=== PATIENT | female | born 1975 | race Caucasian/White ===

== ENCOUNTER 2017-11-27 23:22 | Emergency (ER) | payer SELFPAY ==
[2017-11-28 00:59] VITALS: BP 127/57; PULSE 89; TEMP 99.1; BMI 29.9
--- NOTE | 2017-11-28 01:59 | PDOC ---
History of Present Illness - General History Source: Patient, Family <Jared Sales - Last Filed: 11/28/17 02:01> - History of Present Illness Initial Comments: 11/28/17 02:06 The patient is a 42 year old female, with a significant past medical history of diabetes, who presents to the emergency department with 2 days of right sided toothache. She denies chest pain, shortness of breath, headache and dizziness. She denies fever, chills, nausea, vomit, diarrhea and constipation. She denies dysuria, frequency, urgency and hematuria. Allergies: NKDA <Denise Easton - Last Filed: 11/28/17 02:08> - General Chief Complaint: Toothache Stated Complaint: TOOTHACHE Time Seen by Provider: 11/28/17 01:55 Past History - Past Medical History Psychiatric Problems: Yes - Surgical History Cholecystectomy: Yes - Suicide/Smoking/Psychosocial Hx Smoking History: Never smoked Have you smoked in the past 12 months: No Information on smoking cessation initiated: No Hx Alcohol Use: No Drug/Substance Use Hx: No <Jared Sales - Last Filed: 11/28/17 02:01> <Denise Easton - Last Filed: 11/28/17 02:08> - Past Medical History Allergies/Adverse Reactions: Allergies Allergy/AdvReac Type Severity Reaction Status Date / Time No Known Allergies Allergy Verified 11/28/17 00:33 Home Medications: Ambulatory Orders Ibuprofen [Motrin] 600 mg PO TID #30 tablet 11/28/17 Penicillin V Potassium [Pen Vee K -] 500 mg PO TID #30 tablet 11/28/17 Review of Systems - Review of Systems Able to Perform ROS?: Yes Comments:: 11/28/17 02:07 CONSTITUTIONAL: Absent: fever, no chills, no fatigue EYES: Absent: visual changes ENT: Absent: ear pain, no sore throat MOUTH: (+) right sided toothache CARDIOVASCULAR: Absent: chest pain, no palpitations RESPIRATORY: Absent: cough, no SOB GI: Absent: abdominal pain, no nausea, no vomiting, no constipation, no diarrhea GENITOURINARY: Absent: dysuria, no frequency, no hematuria MUSCULOSKELETAL: Absent: back pain, no arthralgia, no myalgia SKIN: Absent: rash NEURO: Absent: headache <Denise Easton - Last Filed: 11/28/17 02:08> *Physical Exam - Vital Signs Last Vital Signs Temp Pulse Resp BP Pulse Ox 99.1 F 89 14 127/57 98 11/28/17 00:34 11/28/17 00:34 11/28/17 00:34 11/28/17 00:34 11/28/17 00:34 <Jared Sales - Last Filed: 11/28/17 02:01> - Vital Signs Last Vital Signs Temp Pulse Resp BP Pulse Ox 99.1 F 89 14 127/57 98 11/28/17 00:34 11/28/17 00:34 11/28/17 00:34 11/28/17 00:34 11/28/17 00:34 - Physical Exam Comments: 11/28/17 02:07 GENERAL: Well-appearing, well-nourished. No apparent distress. HEENT: (+) Molar 17 appears to be broken with minimal erythema surrounding the gingiva and slight right facial swelling to left mandibular region. Normocephalic, atraumatic. PERRL, EOM intact. CARDIOVASCULAR: Normal S1, S2. Regular rate and rhythm. PULMONARY: Clear to auscultation bilaterally. ABDOMEN: Soft, non-distended, non-tender. EXTREMITIES: Normal ROM in all four extremities. No gross deformities. SKIN: Warm, dry. No rash NEUROLOGICAL: No focal neurological deficits. <Denise Easton - Last Filed: 11/28/17 02:08> Medical Decision Making - Medical Decision Making 11/28/17 02:03 Dr. Sales: The scribe's documentation has been prepared under my direction and personally reviewed by me in its entirery. I confirm that the note above accurately reflects all work, treatment, procedures, and medical decision making performed by me. Pt with toothache to tooth #17 for two days. Denies fever. Advised to see a dentist immediately Rx Pen VK 500mg po , Motrin 600mg <Jared Sales - Last Filed: 11/28/17 02:01> *DC/Admit/Observation/Transfer - Discharge Dispostion Admit: No <Jared Sales - Last Filed: 11/28/17 02:01> - Attestations Scribe Attestion: 11/28/17 02:07 Documentation prepared by Densie Easton, acting as medical collector for Jaredpablo StormDO [place] <Denise Easton - Last Filed: 11/28/17 02:08> Diagnosis at time of Disposition: Toothache - Discharge Dispostion Disposition: HOME Condition at time of disposition: Stable - Prescriptions Prescriptions: Ibuprofen [Motrin] 600 mg PO TID #30 tablet Penicillin V Potassium [Pen Vee K -] 500 mg PO TID #30 tablet - Referrals Referrals: Ofelia Castro MD [Primary Care Provider] - - Patient Instructions Printed Discharge Instructions: DI for Tooth Decay, DI for Dental Pain Additional Instructions: Please see a dentist in the next two days. Take medication as directed. Print Language: YI - Post Discharge Activity
[2017-11-28] MEDS ORDERED: IBUPROFEN 600 MG TABLET (FP) PO STA (02:01)
[2017-11-28] MEDS ORDERED: PENICILLIN V POTASSIUM 500 MG TABLET PO ONE (02:01)
[2017-11-28] MEDS ORDERED: IBUPROFEN 600 MG TABLET (FP) PO ONE (02:04)
== END 2017-11-28 02:26 | disposition home or self-care (01) ==
LOC: JER 23:22
DX: K08.89 Other specified disorders of teeth and supporting structures (principal)
CPT/HCPCS: 99282-25